=== PATIENT | female | born 1995 | race Two or more races ===

== ENCOUNTER 2025-02-28 20:07 | Emergency (ER) | payer MEDICAID, OTHER ==
[~2025-02-28] VITALS: Ht 154.9 cm; Wt 50.0 kg
--- NOTE | 2025-02-28 20:26 | ED.PDOC ---
SOB-HPI HPI Comments 29-year-old female presents to the ED via EMS for chief complaint of the leg symptoms ankle productive cough with green sputum a started 1 week ago. EMS reports that patient was admitted at [facility] yesterday, but did not get any of the swab test seen, antibiotics, or IV fluids as patient did leave against medical advice. The patient was possibly getting worked up for pneumonia although since patient left without being fully treated, it is unsure what her diagnosis was. The patient reports that symptoms have not improved and is also complaining of a 5 day history of constipation. EMS reports that patient was hypotensive in the 70s yesterday at the hospital and on scene did notice a blood pressure is 89 systolic as well. Patient was tachycardic in rods between 130-140 and had a saturation level of 92% on room air with severe rhonchi. EMS gave 1 breathing remained with saturation improvement of 96 through 98 %. The patient denies any chest pain, nausea, fevers, diarrhea, abdominal pain. Vitals: Temp: BP: HR: RR: Past medical history: Denies Past surgical history: Denies Allergies: Aspirin. neher: resp, cough fever tachy, sob. AMA HPI: Poor Historian. REVIEW OF SYSTEMS: CONSTITUTIONAL: Denies acute: diaphoresis, chills, HEAD: Denies acute: headache, photophobia Eyes: Denies acute: Double vision, vision loss, eye pain, eye discharge. EARS: Denies acute: tinnitus, hearing loss, ear discharge, ear pain, THROAT: Denies acute: sore throat, swelling, difficulty swallowing , pain with swallowing, change in voice. NECK: Denies acute: neck pain, neck swelling, stiff neck. HEART: Denies acute : Chest pain, palpitations, LUNGS: Denies acute: wheezing, hemoptysis ABDOMEN: Denies acute: abdominal pain, Nausea, Vomiting, diarrhea, melena , hematemesis, hematochezia SKIN: Denies acute: rash, redness, lesions, itchiness. EXTREMITIES: Denies acute: calf pain, numbness, tingling, weakness, denies pain in extremity. Denies acute: Low back pain. Neuro: Denies acute: focal neurological deficit, motor or sensory focal neurological deficit, tremors, seizure like activity, confusion, dizziness, change in mental status, loss of bowel or bladder function, cauda equina like symptoms. : Denies acute: dysuria, hematuria, flank pain, increase in urinary frequency. PSYCH: Denies acute: hallucination, suicidal ideation, homicidal ideation. FEMALE: Denies acute: abnormal vaginal bleeding, foul odor, unusual discharge. PHYSICAL EXAM: General: ----moderate----acute distress, awake and alert. Head: normocephalic, atraumatic. No raccoon's eyes, no adan sign. Neck: supple, trachea is midline, no swelling. Throat: Normal phonation. Eyes:, no erythema, no purulent discharge, no proptosis, no icterus. Heart: regular tachycardia, no significant murmur appreciated. Lungs: Mild to moderate respiratory distress, Able to speak in full sentences. No wheezing, no rhonchi, no crackles. No stridors Clear to auscultation bilaterally. Abdomen: non tender to palpation, non distended, soft, no guarding, no rebound, + bowel sounds. Neuro: Awake, Alert, oriented to name, self, situation, follows commands GCS=15. Speech is normal. Skin: no petechia, no purpura, no cyanosis, non-pale, not jaundice. Lower extremities: --no - Pitting edema no deformity, no focal swelling, no calf TTP. Makes eye contact. moves all four extremities. Face: no apparent facial droop. . No nuchal rigidity, Kernig's sign, Brudzinski's sign, no meningeal signs. ED COURSE: DISCLAIMER: This medical document was created using an electronic medical record system with voice recognition software and computerized dictation system. Although this document has been carefully reviewed, there might still be some phonetic and typographical errors. Occasional wrong-word or "sound-alike" substitutions may have occurred due to the inherent limitations of voice recognition software. These areas are purely typographical due to imperfections of the software programs and do not reflect any compromise in the patient's medical care. Please read the chart carefully and recognize, using context, where these substitutions have occurred. Chief Complaint: Shortness of Breath Time Seen by MD: 20:15 Reviewed notes: Clinical Resource Director Notes, Medications, Allergies Information Source: Patient, Emergency Med Personnel Mode of Arrival: EMS Severity: Moderate Timing: Weeks Duration: Since onset Was a procedure done? Was a procedure done?: No Differential Dx Differential Diagnosis: Asthma, Bronchitis, COPD, Pneumonia, Respiratory Distress, URI X-Ray, Labs, Meds, VS Vital Signs Date Time Temp Pulse Resp B/P (MAP) Pulse Ox O2 Delivery O2 Flow Rate FiO2 02/28/25 20:54 98.2 120 18 108/66 (80) 90 98.2 02/28/25 20:54 20 90 Nasal Cannula* 2 28 02/28/25 20:46 100.8 137 26 89/57 92 100.8 Time of 1ST Reevaluation: 20:24 Reevaluation 1ST: Unchanged Patient Education/Counseling: Diagnosis, Treatment Family Education/Counseling: No Family Present Comments We attempted IV access multiple times earlier without status. Patient got frustrated, you are able to offer ultrasound guided IV but she did not want to wait any further. . She left against medical advice and said she is going directly to [facility] where she left AMA yesterday. Arm. That she has pneumonia in her lungs and needs IV antibiotics and fluids. Departure 1 Departure Time of Disposition: 21:57 Impression: Primary Impression: Pneumonia Additional Impressions: Sepsis Fever Left against medical advice Disposition: 07 LEFT AGAINST MEDICAL ADVICE Additional Instructions: Left against medical advice. She said she is going directly to [facility] where she left AMA yesterday. Discharged With: Self, Relative Critical Care Note Critical Care Time?: Yes I personally scribed for NIESHA JJ DO ([email or web address]) on 02/28/25 at 20:26. Electronically submitted by Regine Estrada ([facility]). I personally scribed for NIESHA JJ DO ([email or web address]) on 02/28/25 at 20:30. Electronically submitted by Regine Estrada ([facility]). NIESHA JJ DO Feb 28, 2025 20:26
[2025-02-28] MEDS ORDERED: SODIUM CHLORIDE 0.9% 1,000 ML IV ONE (20:30)
[2025-02-28 20:54] VITALS: BP 108/66; PULSE 120; RESP 20; TEMP 98.2; O2SAT 90
--- NOTE | 2025-02-28 21:04 | DVH ---
CHEST RADIOGRAPH INDICATION: sob/cough fever TECHNIQUE: Single frontal view of the chest was obtained COMPARISON: None FINDINGS: Lines and Tubes: None Lungs: Opacification right middle lobe. Pleura: No effusion. No pneumothorax. Cardiomediastinal contours: Unremarkable Bones: No acute osseous abnormality. IMPRESSION: 1. Consolidation right middle lobe.
== END 2025-02-28 21:33 | disposition left against medical advice (07) ==
LOC: EDBD 20:07 → ER 20:07
DX: J18.9 Pneumonia, unspecified organism (principal); A41.9 Sepsis, unspecified organism; R50.9 Fever, unspecified; Z88.6 Allergy status to analgesic agent
CPT/HCPCS: 71045